=== PATIENT | male | born 1985 | race Hispanic/Latino ===

== ENCOUNTER 2022-12-07 04:53 | Emergency (ER) | payer OTHER ==
[2022-12-07] MEDS ORDERED: CEFAZOLIN 2 GM VIAL ONE (12:06)
[2022-12-07] MEDS ORDERED: Sodium Chloride 0.9% 0 ML ONE (12:07)
== END 2022-12-07 08:02 | disposition left against medical advice (07) ==
LOC: ERS 04:53
DX: Z53.29 Procedure and treatment not carried out because of patient's decision for other reasons (principal)
CPT/HCPCS: J3490